=== PATIENT | female | born 2000 | race Caucasian/White ===

== ENCOUNTER → 2022-05-19 | Outpatient (CLI) | payer BC ==
[2022-05-19 16:00] LABS: BASOPHILS % (AUTO) 0 % (0-10); EOSINOPHILS # (AUTO) 0.1 10^3/uL (0.0-0.3); EOSINOPHILS % (AUTO) 1 % (0-10); HEMATOCRIT 32 % (35-52); HEMOGLOBIN 10.5 g/dL (11.5-16.0); LYMPHOCYTES # (AUTO) 1.8 10^3/uL (1.0-4.0); LYMPHOCYTES % (AUTO) 15 % (12-44); MEAN CORPUSCULAR HEMOGLOBIN 27 pg (25-34); MEAN CORPUSCULAR HGB CONC 32 g/dL (32-36); MEAN CORPUSCULAR VOLUME 84 fL (80-99); MEAN PLATELET VOLUME 11.4 fL (9.0-12.2); MONOCYTES # (AUTO) 0.7 10^3/uL (0.0-1.0); MONOCYTES % (AUTO) 6 % (0-12); NEUTROPHILS # (AUTO) 9.5 10^3/uL (1.8-7.8); NEUTROPHILS % (AUTO) 78 % (42-75); PLATELET COUNT 197 10^3/uL (130-400); WHITE BLOOD COUNT 12.3 10^3/uL (4.3-11.0)
[2022-05-19 16:11] LABS: ALBUMIN 3.4 GM/DL (3.2-4.5); POTASSIUM 3.2 MMOL/L (3.6-5.0)
[2022-05-19 16:12] LABS: CALCIUM 8.8 MG/DL (8.5-10.1)
[2022-05-19 16:13] LABS: TOTAL PROTEIN 6.7 GM/DL (6.4-8.2)
[2022-05-19 16:15] LABS: BILIRUBIN,TOTAL 0.3 MG/DL (0.1-1.0)
[2022-05-19 16:17] LABS: CREATININE SERUM 0.55 MG/DL (0.60-1.30)
[2022-05-19 16:20] LABS: URIC ACID 4.6 MG/DL (2.6-7.2)
[2022-05-19 16:21] LABS: PROTHROMBIN TIME PATIENT 13.7 SEC (12.2-14.7)
== END ==
LOC: LAB 15:38
PROVIDERS: ATTEND Family Medicine
DX: R10.11 Right upper quadrant pain (principal)
CPT/HCPCS: 36415; 80053; 82140; 83615; 84550; 85025; 85610; 85730

== ENCOUNTER 2022-05-31 10:20 | Inpatient (IN) | payer BC, MEDICAID ==
[~2022-05-31] VITALS: Ht 180 cm; Wt 92.9 kg
[2022-05-31] VITALS (30 sets, daily range): BP systolic 105–172; BP diastolic 54–104
[2022-05-31 11:10] LABS: BASOPHILS # (AUTO) 0.1 10^3/uL (0.0-0.1); BASOPHILS % (AUTO) 0 % (0-10); EOSINOPHILS % (AUTO) 0 % (0-10); HEMATOCRIT 32 % (35-52); HEMOGLOBIN 10.6 g/dL (11.5-16.0); LYMPHOCYTES # (AUTO) 1.2 10^3/uL (1.0-4.0); LYMPHOCYTES % (AUTO) 8 % (12-44); MEAN CORPUSCULAR HEMOGLOBIN 28 pg (25-34); MEAN CORPUSCULAR HGB CONC 33 g/dL (32-36); MEAN CORPUSCULAR VOLUME 84 fL (80-99); MEAN PLATELET VOLUME 12.2 fL (9.0-12.2); MONOCYTES # (AUTO) 0.5 10^3/uL (0.0-1.0); MONOCYTES % (AUTO) 4 % (0-12); NEUTROPHILS # (AUTO) 12.8 10^3/uL (1.8-7.8); NEUTROPHILS % (AUTO) 87 % (42-75); PLATELET COUNT 166 10^3/uL (130-400); WHITE BLOOD COUNT 14.7 10^3/uL (4.3-11.0)
--- NOTE | 2022-05-31 11:13 | History & Physical-OB/GYN ---
KEMAL WILLS 05/31/22 1113: OB - Chief Complaint & HPI Date/Time Date of Admission: Date of Admission: May 31, 2022 Date seen by a Provider: May 31, 2022 Time Seen by a Provider: 11:00 Chief Complaint/History OB-Reason for Admission/Chief: Onset of Labor Hx : 1 Hx Para: 0 Gestational Age in Weeks: 39 Gestational Age in Days: 1 Allergies and Home Medications Allergies Coded Allergies: No Known Drug Allergies (Unverified , 05/30/22) Patient Home Medication List Home Medication List Reviewed: Yes Pnv 119/Iron Fum/Folic Acid ( 19 Tablet) 29 Mg Iron-1 Mg Tablet, 1 EACH PO DAILY, (Reported) Entered as Reported by: ANA DIETRICH on 05/31/22 111 Last Action: New Order OB - History Hx of Present Care: Yes Ultrasounds: Other (Normal third trimester US) Obstetrical Complications: None Medical Complications: Other (presented with vesicular rash on posterior calf 05/23/2022, treated with acyclovir, denies hx of similar rashes) Other Concerns: Patient had one episode of emesis. States she felt well before that, denies headache, vision changes. Information Induced Hypertension: No Maternal Gestational Diabetes: No Hemorrhage: No Obstetrical History Hx : 1 Hx Para: 0 Number of Living Children: 0 Hx Termination: No Hx Total # of Abortions (Spona: 0 Hx Multiple Gestation: No Hx Ectopic : No Hx Stillbirth: No Hx Complication: No Hx Induced Hypertens: No Hx Maternal Gestational Diabet: No Hx Hemorrhage: No Delivery History Hx Dystocia: No Hx Forceps Assisted Delivery: No Hx Vacuum Extraction Assisted: No Hx Placenta Abnormality: No Hx Distress: No Hx Large For Gestational Age I: No Hx Small for Gestational Age I: No Hx Section: No Hx Vaginal Delivery Post C-Sec: No Hx Blood Disorders: No Adverse Rxn to Tranfusion: No Patient Past Medical History Denies PMH Social History/Family History Alcohol Use: Denies Use Recreational Drug Use: No Smoking Cessation: Never smoker Immunizations Influenza Vaccine Up-to-Date: No; Not Current Hepatitis B: No Tetanus Booster (TDap): Less than 5yrs Rubella: immune RPR/VDRL: Negative GBS Status: Negative HBsAG: Negative OB - Admission Exam Physical Exam Heart: Rhythm Normal Lungs: Clear Abdomen: Gravid Extremities: Normal Cervical Dilatation: 6cm Effacement: 100% Station: -3 Membranes: Intact Heart Rate: 140's Accelerations: Accelerations Present Decelerations: Prolonged Decelerations (one 5 minute deceleration after episode of emesis) Short Term Variability: Present Long-Term Variability: Average (6-25) Contractions on Admission: < 5 Minutes Apart Date/Time Contractions Began;: 05/31/2022 0400 Frequency of Contractions: 2-3 minutes Labs Laboratory Tests Test 05/31/22 10:50 Range/Units OB - Assessment/Plan/Diagnosis Assessment Assessment: active labor Admission Dx Active labor at term Admission Status: Inpatient Order (span 2 midnights) Reason for Inpatient Admission: Active labor at term Plan Plan: Expectant Management Problems: (1) Active labor at term Assessment & Plan: Continuous monitoring in place. Patient desires epidural. Patient had one episode of emesis, followed by a 5 minuted deceleration in FHR. FHR since recovered with good baseline and variability. Discussed FHR with patient and recommendations if it were to happen again. Expectant management. LJ SERRANO MD 05/31/22 1556: Allergies and Home Medications Allergies Coded Allergies: No Known Drug Allergies (Unverified , 05/30/22) Patient Home Medication List Pnv 119/Iron Fum/Folic Acid ( 19 Tablet) 29 Mg Iron-1 Mg Tablet, 1 EACH PO DAILY, (Reported) Entered as Reported by: ANA DIETRICH on 05/31/22 1115 Last Action: New Order Supervisory-Addendum Brief Verification & Attestation Participated in pt care: history, MDM, physical Personally performed: exam, history, MDM, supervision of care Care discussed with: Medical Student Procedures: n/a I personally saw and examined patient and confirmed the history documented by the medical student. I directed the plan of care as documented by the medical student. KEMAL WILLS May 31, 2022 11:13 LJ SERRANO MD May 31, 2022 15:56
[2022-05-31] MEDS ORDERED: PNV-9 PO (11:15)
[2022-05-31] MEDS ORDERED: MINERAL OIL 30 ML UDC TOP PRN (11:15)
[2022-05-31] MEDS ORDERED: D5 LR IV SOLUTION 1,000 ML IV SCH (11:15)
[2022-05-31] MEDS ORDERED: OXYTOCIN PRE-MIX DRIP 500 ML IV SCH (11:15)
[2022-05-31] MEDS ORDERED: fentaNYL 2 mcg/ml BUPIVA 0.125 100 ML ONE (11:34)
[2022-05-31] MEDS ORDERED: fentaNYL 2 mcg/ml BUPIVA 0.125 100 ML EPI SCH (12:15)
[2022-05-31] MEDS ORDERED: LACTATED RINGERS 1,000 ML IV ONE ×2 (12:15)
[2022-05-31] MEDS ORDERED: fentaNYL INJ 100 MCG/2 ML AMP INJ ONE (12:15)
[2022-05-31] MEDS ORDERED: NALOXONE 0.4 MG/ML 1 ML (NARCAN) VIAL IV PRN (12:15)
[2022-05-31] MEDS ORDERED: ONDANSETRON 4 MG/2 ML (SDV) Z0FRAN IV PRN (12:15)
[2022-05-31] MEDS: OXYTOCIN PRE-MIX DRIP 500 ML IV SCH ×2 (13:57→14:29)
[2022-05-31] MEDS ORDERED: CATHETER FLUSH 10 ML SYR IV SCH ×2 (14:00→22:00)
[2022-05-31] MEDS ORDERED: LIDOCAINE 1% INJ 20 ML VIAL ONE (14:04)
[2022-05-31] MEDS ORDERED: BENZOCAINE/MENTHOL (DERMOPLAST) 56 ML CAN TP PRN (15:45)
[2022-05-31] MEDS ORDERED: IBUPROFEN 600 MG (MOTRIN) TAB PO PRN (15:45)
[2022-05-31] MEDS ORDERED: WITCH HAZEL(TUCKS) 40 EA JAR TOP PRN (15:45)
[2022-05-31] MEDS ORDERED: TETANUS,DIPTH,PERTUSS P/F (BOOSTRIX) 0.5 ML VIAL IM ONE (15:45)
--- NOTE | 2022-05-31 15:47 | OB Labor & Delivery Record ---
Vag Delivery Note Vag Delivery Note Date of Delivery: 05/31/22 Preoperative Diagnosis: Eunice Camacho is a 21 /Para 1 / 0, Gestational Age (wks)39with 1 day Postoperative Diagnosis: Same Surgeon: LJ SERRANO Surgical Services Asst: Monica Okeefe, OMS4 Anesthesia: Epidural Delivery Type: Findings: Viable male infant, apgars 8/9, weight 8#8 Lacerations: right vaginal wall, left periurethral Intact placenta with 3 vessel cord. No nuchal cord, body cord or shoulder dystocia Estimated Blood Loss: 300 ml Complications: None Condition: Stable Description of Procedure: The patient is a 21 year old female who presented in active labor. She was admitted and informed consent was obtained. Her labor course was remarkable for prolonged decelerations 3x throughout labor when vomiting. She progressed to complete dilatation and began to push. She was then set up for delivery. The infant's head was delivered atraumatically in the XAVIER position. The shoulders and remainder of the infant's body were then delivered without difficulty. Upon delivery, the infant was vigorous and placed on maternal abdomen. After a delay the cord was doubly clamped and cut and the was handed off to the pediatric staff. An intact placenta with 3-vessel cord delivered via Susan and there was found to be minimal bleeding.~ Vigorous fundal massage was performed and the fundus was found to be firm. IV oxytocin was given. Examination of the vagina and perineum revealed a right vaginal laceration repaired with simple interrupted and subcutaneous running 3-0 vicryl rapide suture and a left periurethral abrasion repaired in simple running fashion with 3-0 Vicryl rapide suture. Following the repair, sponge, instrument and needle counts were correct. Mom and baby were both in stable condition in the labor suite. Vitals - Labs Vital Signs - I&O Vital Signs Date Time Temp Pulse Resp B/P (MAP) Pulse Ox O2 Delivery O2 Flow Rate FiO2 05/31/22 15:37 72 18 124/74 (91) Room Air 05/31/22 15:27 68 16 136/71 (92) Room Air 05/31/22 15:07 76 16 137/84 (101) Room Air 05/31/22 14:52 81 18 133/75 (94) Room Air 05/31/22 14:36 36.9 78 18 137/77 (97) Room Air 05/31/22 14:22 71 18 145/71 (95) Room Air 05/31/22 14:07 94 18 143/72 (95) Room Air 05/31/22 13:45 96 172/104 (126) 99 Room Air 05/31/22 13:30 77 128/78 (95) 99 Room Air 05/31/22 13:10 36.6 99 115/68 (84) 96 Room Air 05/31/22 12:55 88 117/70 (86) 100 Room Air 05/31/22 12:50 86 123/66 (85) 99 Room Air 05/31/22 12:45 105 117/78 (91) 98 Room Air 05/31/22 12:30 89 127/77 (94) 100 Room Air 05/31/22 12:25 120 118/76 (90) 99 Room Air 05/31/22 12:20 92 124/81 (95) Room Air 05/31/22 12:16 96 110/81 (91) 100 Room Air 05/31/22 12:13 87 132/80 (97) 100 Room Air 05/31/22 12:10 88 134/75 (94) 97 Room Air 05/31/22 12:07 96 126/88 (101) 97 Room Air 05/31/22 12:04 105 105/54 (71) 98 Room Air 05/31/22 12:01 113 124/71 (88) 99 Room Air 05/31/22 11:58 96 131/76 (94) 99 Room Air 05/31/22 11:55 101 137/79 (98) 100 Room Air 05/31/22 11:52 81 135/81 (99) 100 Room Air 05/31/22 11:45 78 139/79 (99) 99 Room Air 05/31/22 10:30 88 18 128/86 (100) 97 Room Air 05/31/22 10:30 83 114/72 (86) 100 Room Air 05/31/22 10:20 36.3 96 18 100 Room Air Labs Laboratory Tests 05/31/22 10:50: White Blood Count 14.7H, Red Blood Count 3.86, Hemoglobin 10.6L, Hematocrit 32L, Mean Corpuscular Volume 84, Mean Corpuscular Hemoglobin 28, Mean Corpuscular Hemoglobin Concent 33, Red Cell Distribution Width 14.7H, Platelet Count 166, Mean Platelet Volume 12.2, Immature Granulocyte % (Auto) 1, Neutrophils (%) (Auto) 87H, Lymphocytes (%) (Auto) 8L, Monocytes (%) (Auto) 4, Eosinophils (%) (Auto) 0, Basophils (%) (Auto) 0, Neutrophils # (Auto) 12.8H, Lymphocytes # (Auto) 1.2, Monocytes # (Auto) 0.5, Eosinophils # (Auto) 0.0, Basophils # (Auto) 0.1, Immature Granulocyte # (Auto) 0.1 LJ SERRANO MD May 31, 2022 15:47
[2022-05-31] MEDS ORDERED: LIDOCAINE 1% INJ 20 ML VIAL INJ ONE (16:00)
[2022-05-31] MEDS: DOCUSATE SODIUM 100 MG (COLACE) CAP PO SCH (21:37)
[2022-06-01 00:35] VITALS: BP 121/69
[2022-06-01 04:20] VITALS: BP 119/67
[2022-06-01 06:58] LABS: BASOPHILS # (AUTO) 0.1 10^3/uL (0.0-0.1); BASOPHILS % (AUTO) 0 % (0-10); EOSINOPHILS # (AUTO) 0.1 10^3/uL (0.0-0.3); EOSINOPHILS % (AUTO) 1 % (0-10); HEMATOCRIT 29 % (35-52); HEMOGLOBIN 9.7 g/dL (11.5-16.0); LYMPHOCYTES # (AUTO) 2.2 10^3/uL (1.0-4.0); LYMPHOCYTES % (AUTO) 17 % (12-44); MEAN CORPUSCULAR HEMOGLOBIN 28 pg (25-34); MEAN CORPUSCULAR HGB CONC 33 g/dL (32-36); MEAN CORPUSCULAR VOLUME 84 fL (80-99); MEAN PLATELET VOLUME 11.8 fL (9.0-12.2); MONOCYTES # (AUTO) 0.7 10^3/uL (0.0-1.0); MONOCYTES % (AUTO) 6 % (0-12); NEUTROPHILS # (AUTO) 10.2 10^3/uL (1.8-7.8); NEUTROPHILS % (AUTO) 76 % (42-75); PLATELET COUNT 176 10^3/uL (130-400); WHITE BLOOD COUNT 13.4 10^3/uL (4.3-11.0)
--- NOTE | 2022-06-01 08:01 | Anesthesia-Regional Post-Op ---
Regional Patient Condition Mental Status: Alert, Oriented x3 Circulation: Same as Pre-Op Headache: Absent Sensation: Full Recovery Motor Block: Absent Post Op Complications Complications None Follow Up Care/Instructions Patient Instructions None needed. Anesthesia/Patient Condition Patient is doing well, no complaints, stable vital signs, no apparent adverse anesthesia problems. No complications reported per nursing. EBONY CALLAWAY CRNA Jun 01, 2022 08:01
[2022-06-01 08:55] VITALS: BP 116/78
[2022-06-01] MEDS: DOCUSATE SODIUM 100 MG (COLACE) CAP PO SCH (09:00)
[2022-06-01 12:00] VITALS: BP 120/80
[2022-06-01] MEDS ORDERED: IBUP-844 PO (16:32)
--- NOTE | 2022-06-01 16:35 | Short Stay Summary ---
Discharge Summary Hospital Course Final Diagnosis: s/p vaginal delivery Hospital Course Date of Admission: May 31, 2022 at 11:00 Admission Diagnosis : 1. G1 at 39w1d 2. spontaneous onset of labor Family Physician/Provider: Domingo Date of Discharge: 06/01/22 Discharge Diagnosis: 1. G1 at 39w1d 2. spontaneous onset of labor s/p on 05/31/22 3. anemia of 4. right vaginal laceration repair Hospital Course: Routine course. Labs and Pending Lab Test: Laboratory Tests 06/01/22 06:45: White Blood Count 13.4H, Red Blood Count 3.49L, Hemoglobin 9.7L, Hematocrit 29L, Mean Corpuscular Volume 84, Mean Corpuscular Hemoglobin 28, Mean Corpuscular Hemoglobin Concent 33, Red Cell Distribution Width 14.8H, Platelet Count 176, Mean Platelet Volume 11.8, Immature Granulocyte % (Auto) 0, Neutrophils (%) (Auto) 76H, Lymphocytes (%) (Auto) 17, Monocytes (%) (Auto) 6, Eosinophils (%) (Auto) 1, Basophils (%) (Auto) 0, Neutrophils # (Auto) 10.2H, Lymphocytes # (A uto) 2.2, Monocytes # (Auto) 0.7, Eosinophils # (Auto) 0.1, Basophils # (Auto) 0.1, Immature Granulocyte # (Auto) 0.1 Home Meds Active Reported 19 Tablet (Pnv 119/Iron Fum/Folic Acid) 29 Mg Iron-1 Mg Tablet 1 Each PO DAILY Assessment/Pt Instructions Follow up with Dr. Lane in 6 weeks. Discharge Physical Examination General Appearance: Alert, Oriented X3, Cooperative Psych/Mental Status: Mental Status NL, Mood NL Allergies: Coded Allergies: No Known Drug Allergies (Unverified , 05/30/22) Discharge Summary Date of Admission May 31, 2022 at 11:00 Date of Discharge Discharge Diagnosis (1) Active labor at term Assessment & Plan: Continuous monitoring in place. Patient desires epidural. Patient had one episode of emesis, followed by a 5 minuted deceleration in FHR. FHR since recovered with good baseline and variability. Discussed FHR with patient and recommendations if it were to happen again. Expectant management. LEDA VASQUEZ DO Jun 01, 2022 16:35
== END 2022-06-01 17:05 | disposition home or self-care (01) | DRG 807 ==
LOC: WSo 10:20 → LDRP 10:20 → WSo 10:59 → LDRP 11:00
PROVIDERS: ADMIT Family Medicine; ATTEND Family Medicine
PROC: 10E0XZZ Delivery of Products of Conception, External Approach (ICD-10-PCS; principal; 2022-05-31)
PROC: 0HQ9XZZ Repair Perineum Skin, External Approach (ICD-10-PCS; 2022-05-31)
PROC: 0UQMXZZ Repair Vulva, External Approach (ICD-10-PCS; 2022-05-31)
DX: O76 Abnormality in fetal heart rate and rhythm complicating labor and delivery (principal); Z37.0 Single live birth; Z3A.39 39 weeks gestation of pregnancy; O71.82 Other specified trauma to perineum and vulva; O70.0 First degree perineal laceration during delivery; O99.02 Anemia complicating childbirth; D64.9 Anemia, unspecified
CPT/HCPCS: 36415; 83033; 85025; 86780; 86850; 86900; 86901